=== PATIENT | male | born 1990 | race African-American/Black ===

== ENCOUNTER 2021-02-23 14:01 | Emergency (ER) | payer BC ==
[2021-02-23] MEDS ORDERED: Ondansetron 4 MG Tab.DIS ONE (14:05)
--- NOTE | 2021-02-23 14:29 | EDM.PDOC ---
ED HPI GENERAL MEDICAL PROBLEM - General Chief Complaint: General Stated Complaint: N/V Time Seen by Provider: 02/23/21 14:10 Source of Information: Reports: Patient History Limitations: Reports: No Limitations - History of Present Illness INITIAL COMMENTS - FREE TEXT/NARRATIVE: Guillermo is a 30 year old male who presents to the ER per EMS with complaints of body aches, headache and nausea since having his [employer] covid vaccine on . States symptoms kicked in Wednesday. Has not been able to eat or drink since then due to nausea, vomiting. No diarrhea. States has headache and significant body aches. No cough, sinus congestion, shortness of breath, chest discomfort. No abdominal pain. Denies urinary complaints. has been taking intermittent tylenol with minimal improvement. Onset: Gradual Duration: Day(s):, Waxing/Waning Location: Reports: Head, Generalized Quality: Reports: Ache Severity: Moderate Improves with: Reports: None Associated Symptoms: Reports: Headaches, Malaise, Nausea/Vomiting. 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 [No Known Home Meds] 02/23/21 [History] Past Medical History - Past Health History Medical/Surgical History: Denies Medical/Surgical History Social & Family History - Family History Family Medical History: No Pertinent Family History - Tobacco Use Tobacco Use Status *Q: Never Tobacco User Second Hand Smoke Exposure: No - Caffeine Use Caffeine Use: Reports: None - Recreational Drug Use Recreational Drug Use: No ED ROS GENERAL - Review of Systems Review Of Systems: See Below Constitutional: Reports: Chills, Malaise, Weakness, Fatigue. Denies: Fever HEENT: Denies: Ear Pain, Rhinitis, Sinus Problem, Throat Pain, Vertigo Respiratory: Denies: Shortness of Breath, Cough Cardiovascular: Reports: Lightheadedness. Denies: Chest Pain, Edema Endocrine: Reports: Fatigue GI/Abdominal: Reports: Nausea, Vomiting. Denies: Abdominal Pain, Constipation, Diarrhea : Reports: No Symptoms Musculoskeletal: Reports: Joint Pain, Muscle Pain Skin: Reports: No Symptoms Neurological: Reports: Headache Psychiatric: Reports: No Symptoms ED EXAM, GENERAL - Physical Exam Exam: See Below Exam Limited By: No Limitations General Appearance: Alert, WD/WN, No Apparent Distress Ears: Normal External Exam, Normal TMs Nose: Normal Inspection, Normal Mucosa, No Blood Throat/Mouth: Normal Inspection, Normal Oropharynx Head: Normocephalic Neck: Normal Inspection, Supple, Non-Tender Respiratory/Chest: No Respiratory Distress, Lungs Clear, Normal Breath Sounds Cardiovascular: Regular Rate, Rhythm GI/Abdominal: Normal Bowel Sounds, Soft, Non-Tender Extremities: Normal Inspection, No Pedal Edema Neurological: Alert, Oriented Skin Exam: Warm, Dry Course - Vital Signs Last Recorded V/S: Last Vital Signs Temp 97.2 F 02/23/21 14:06 Pulse 106 H 02/23/21 14:06 Resp 16 02/23/21 14:06 BP 123/85 02/23/21 14:06 Pulse Ox 96 02/23/21 14:06 - Orders/Labs/Meds Orders: Active Orders 24 hr Category Date Time Status Sodium Chloride 0.9% [Normal Saline] 1,000 ml Med 02/23/21 14:22 Ordered IV .BOLUS Medication Orders Sodium Chloride (Normal Saline) 1,000 mls @ 999 mls/hr IV .BOLUS ONE Stop: 02/23/21 15:22 Last Admin: 02/23/21 14:31 Dose: 999 mls/hr Documented by: Meds: Medications Generic Name Dose Route Start Last Admin Trade Name Freq PRN Reason Stop Dose Admin Sodium Chloride 1,000 mls @ 999 mls/hr 02/23/21 14:22 02/23/21 14:31 Normal Saline IV 02/23/21 15:22 999 mls/hr .BOLUS ONE Administration Discontinued Medications Generic Name Dose Route Start Last Admin Trade Name Freq PRN Reason Stop Dose Admin Ketorolac Tromethamine 30 mg 02/23/21 14:22 02/23/21 14:30 Ketorolac 30 Mg/Ml Sdv IVPUSH 02/23/21 14:23 30 mg ONETIME ONE Administration Ondansetron HCl 4 mg 02/23/21 14:23 02/23/21 14:30 Ondansetron 4 Mg/2 Ml Sdv IVPUSH 02/23/21 14:24 4 mg ONETIME ONE Administration Ondansetron HCl 2 packet 02/23/21 14:23 02/23/21 14:30 Take Home: Ondansetron 4 Mg Tab.Dis, 2 Tab Pack PO 02/23/21 14:24 2 packet ONETIME ONE Administration - Re-Assessments/Exams Free Text/Narrative Re-Assessment/Exam: 02/23/21 14:56 is feeling better after the zofran and toradol. IV fluids infusing due to nausea/vomiting. Departure - Departure Time of Disposition: 14:57 Disposition: Home, Self-Care 01 Condition: Good Clinical Impression: Vaccine reaction Qualifiers: Encounter type: initial encounter Qualified Code(s): T50.Z95A - Adverse effect of other vaccines and biological substances, initial encounter - Discharge Information *PRESCRIPTION DRUG MONITORING PROGRAM REVIEWED*: No *COPY OF PRESCRIPTION DRUG MONITORING REPORT IN PATIENT ANIKA: No Forms: ED Department Discharge Additional Instructions: 1. Push fluids 2. Paloma foods 3. Zofran 4 mg under the tongue every 6 hours as needed for nausea/vomiting 4. Alternate tylenol with ibuprofen every 3 hours as needed for fever/discomfort 5. Follow up for any persisting concerns. Sepsis Event Note (ED) - Evaluation Sepsis Screening Result: No Definite Risk - Focused Exam Vital Signs: Vital Signs Temp Pulse Resp BP Pulse Ox 02/23/21 14:06 97.2 F 106 H 16 123/85 96 - My Orders Last 24 Hours: My Active Orders 02/23/21 14:22 Sodium Chloride 0.9% [Normal Saline] 1,000 ml IV .BOLUS - Assessment/Plan Last 24 Hours: My Active Orders 02/23/21 14:22 Sodium Chloride 0.9% [Normal Saline] 1,000 ml IV .BOLUS
[2021-02-23] MEDS: Ketorolac 30 MG/ML SDV IVPUSH ONE (14:30)
[2021-02-23] MEDS: Ondansetron 4 MG/2 ML SDV IVPUSH ONE (14:30)
[2021-02-23] MEDS: Take Home: Ondansetron 4 MG Tab.DIS, 2 Tab Pack PO ONE (14:30)
[2021-02-23] MEDS: Sodium Chloride 0.9% 1,000 ML IV ONE (14:31)
== END 2021-02-23 15:41 | disposition home or self-care (01) ==
LOC: CC.ED 14:01
DX: M79.10 Myalgia, unspecified site (principal); T50.B95A Adverse effect of other viral vaccines, initial encounter
CPT/HCPCS: 96374; 96375; 99284; A9270; J1885; J2405; J7030

== ENCOUNTER 2021-05-25 02:56 | Emergency (ER) | payer BC ==
--- NOTE | 2021-05-25 03:56 | EDM.PDOC ---
ED HPI GENERAL MEDICAL PROBLEM - General Chief Complaint: General Stated Complaint: KNEE PAIN Time Seen by Provider: 05/25/21 03:05 Source of Information: Reports: Patient History Limitations: Reports: No Limitations - History of Present Illness INITIAL COMMENTS - FREE TEXT/NARRATIVE: Patient reports chronic right knee pain for 1 year. He reports pops and hurts off and on. He reports he has been working a lot lately and thins thats making it hurt more often. Wanted to get it checked out early this morning. Denies redness, heat, injury. Duration: Week(s): (52) Location: Reports: Lower Extremity, Right Quality: Reports: Ache Severity: Mild Improves with: Reports: Rest Worsens with: Reports: Movement Associated Symptoms: Reports: No Other Symptoms Right Knee Pain Score (Numeric/FACES): 8 - Related Data Allergies Allergy/AdvReac Type Severity Reaction Status Date / Time No Known Allergies Allergy Verified 05/25/21 03:03 Home Meds: Home Meds Insulin Aspart [NovoLOG] 10 - 12 unit SQ WITHMEALSANDBED 05/25/21 [History] Insulin Glarg,Human.Rec.Analog [Lantus] 30 - 36 unit SUBCUT DAILY 05/25/21 [History] Past Medical History - Past Health History Medical/Surgical History: Denies Medical/Surgical History Endocrine/Metabolic History: Reports: Diabetes, Type I Social & Family History - Family History Family Medical History: No Pertinent Family History - Tobacco Use Tobacco Use Status *Q: Current Every Day Tobacco User Years of Tobacco use: 10 Packs/Tins Daily: 1 - Caffeine Use Caffeine Use: Reports: None - Recreational Drug Use Recreational Drug Use: No ED ROS GENERAL - Review of Systems Review Of Systems: See Below Constitutional: Reports: No Symptoms Respiratory: Reports: No Symptoms Cardiovascular: Reports: No Symptoms GI/Abdominal: Reports: No Symptoms Musculoskeletal: Reports: Joint Pain (right knee pain). Denies: Joint Swelling Skin: Reports: No Symptoms Neurological: Reports: No Symptoms ED EXAM, GENERAL - Physical Exam Exam: See Below Exam Limited By: No Limitations General Appearance: Alert, WD/WN, No Apparent Distress Respiratory/Chest: No Respiratory Distress, Lungs Clear, Normal Breath Sounds, No Accessory Muscle Use Cardiovascular: Normal Peripheral Pulses, Regular Rate, Rhythm, No Edema Peripheral Pulses: 2+: Popliteal (R), Posterior Tibial (L), Posterior Tibial (R) Extremities: Normal Inspection, Normal Range of Motion, No Pedal Edema, Normal Capillary Refill, Other (mild tenderness anterior lateral/medial/ and meniscus location. ROM intact. Neurovascular intact. Sensory/motor function intact. pulses +2, cap refill < 2 sec. ) Neurological: Alert, Oriented, Normal Cognition Psychiatric: Normal Affect, Normal Mood Skin Exam: Warm, Dry, Intact, Normal Color, No Rash Course - Vital Signs Last Recorded V/S: Last Vital Signs Temp 97.8 F 05/25/21 03:01 Pulse 106 H 05/25/21 03:01 Resp 18 05/25/21 03:01 BP 127/85 05/25/21 03:01 Pulse Ox 99 05/25/21 03:01 - Orders/Labs/Meds Orders: Active Orders 24 hr Category Date Time Status Knee 3V Rt [CR] Stat Exams 05/25/21 03:07 Taken Departure - Departure Time of Disposition: 03:54 Disposition: Home, Self-Care 01 Condition: Good Clinical Impression: Knee pain, right Qualifiers: Chronicity: chronic Qualified Code(s): M25.561 - Pain in right knee - Discharge Information *PRESCRIPTION DRUG MONITORING PROGRAM REVIEWED*: Not Applicable *COPY OF PRESCRIPTION DRUG MONITORING REPORT IN PATIENT ANIKA: Not Applicable Instructions: Chronic Knee Pain, Adult Referrals: PCP,None [Primary Care Provider] - Forms: ED Department Discharge Additional Instructions: Followup with your primary care provider Return to the ER for worsening or any emergent concerns Rest knee Ice knee Knee immobilizer as needed IbuProfen for pain over the counter Sepsis Event Note (ED) - Evaluation Sepsis Screening Result: No Definite Risk - Focused Exam Vital Signs: Vital Signs Temp Pulse Resp BP Pulse Ox 05/25/21 03:01 97.8 F 106 H 18 127/85 99 - My Orders Last 24 Hours: My Active Orders 05/25/21 03:07 Knee 3V Rt [CR] Stat - Assessment/Plan Last 24 Hours: My Active Orders 05/25/21 03:07 Knee 3V Rt [CR] Stat Plan: PLEASE SEE RN NOTE FOR PFSH
== END 2021-05-25 04:07 | disposition home or self-care (01) ==
LOC: CC.ED 02:56
DX: M25.561 Pain in right knee (principal); E10.9 Type 1 diabetes mellitus without complications; Z72.0 Tobacco use
CPT/HCPCS: 73562-RT; 99283-25

== ENCOUNTER 2021-06-05 21:35 | Emergency (ER) | payer BC ==
--- NOTE | 2021-06-05 21:51 | EDM.PDOC ---
ED HPI GENERAL MEDICAL PROBLEM - General Chief Complaint: General Stated Complaint: HENRY Time Seen by Provider: 06/05/21 21:35 Source of Information: Reports: Patient History Limitations: Reports: No Limitations - History of Present Illness INITIAL COMMENTS - FREE TEXT/NARRATIVE: States that earlier to day he developed a migraine that he never gets. He was sensitive to the light, tears in his eyes, and his Blood sugar at the time on his monitor was 169 which he thought was high for him. He admits that he did not get much sleep recently as he works in [employer] at [employer] in [employer] and then works at [employer]. When he had his migraine he went home and slept and then over slept as he didn't wake up in time for his shift that was supposed to start at 4 pm and reported at 8pm. His headache was completely gone and his Blood sugar was 144 at that time. He has eaten since then. When he reported to work they told him he needed to be checked out and came to the ER. He states that on arrival here he feels back to his normal self. - Related Data Allergies Allergy/AdvReac Type Severity Reaction Status Date / Time No Known Allergies Allergy Verified 06/05/21 21:36 Home Meds: Home Meds Insulin Aspart [NovoLOG] 10 - 12 unit SQ WITHMEALSANDBED 05/25/21 [History] Insulin Glarg,Human.Rec.Analog [Lantus] 30 - 36 unit SUBCUT DAILY 05/25/21 [History] Past Medical History - Past Health History Medical/Surgical History: Denies Medical/Surgical History Endocrine/Metabolic History: Reports: Diabetes, Type I Social & Family History - Family History Family Medical History: No Pertinent Family History - Caffeine Use Caffeine Use: Reports: None ED ROS GENERAL - Review of Systems Review Of Systems: See Below Constitutional: Reports: No Symptoms HEENT: Reports: No Symptoms Respiratory: Reports: No Symptoms Cardiovascular: Reports: No Symptoms GI/Abdominal: Reports: No Symptoms : Reports: No Symptoms Psychiatric: Reports: No Symptoms ED EXAM, GENERAL - Physical Exam Exam: See Below Exam Limited By: No Limitations General Appearance: Alert, WD/WN, No Apparent Distress Ears: Normal External Exam, Normal Canal, Normal TMs Respiratory/Chest: No Respiratory Distress, Lungs Clear, Normal Breath Sounds Cardiovascular: Normal Peripheral Pulses, Regular Rate, Rhythm, No Edema GI/Abdominal: Normal Bowel Sounds, Soft, Non-Tender Neurological: Alert, Oriented Psychiatric: Normal Affect Skin Exam: Warm, Dry, Intact Departure - Departure Time of Disposition: 21:48 Disposition: Home, Self-Care 01 Condition: Good Clinical Impression: Migraine Qualifiers: Migraine type: without aura Status migrainosus presence: without status migrainosus Intractability: not intractable Qualified Code(s): G43.009 - Migraine without aura, not intractable, without status migrainosus - Discharge Information *PRESCRIPTION DRUG MONITORING PROGRAM REVIEWED*: Not Applicable *COPY OF PRESCRIPTION DRUG MONITORING REPORT IN PATIENT ANIKA: Not Applicable Instructions: Migraine Headache, [id number] Forms: ED Department Discharge Additional Instructions: continue to monitor blood sugars as currently doing Eat regularly push fluids get enough rest continue normal activity. - Problem List & Annotations (1) Migraine SNOMED Code(s): 37235176 Code(s): G43.909 - MIGRAINE, UNSP, NOT INTRACTABLE, WITHOUT STATUS MIGRAINOSUS Status: Acute Priority: High Qualifiers: Migraine type: without aura Status migrainosus presence: without status migrainosus Intractability: not intractable Qualified Code(s): G43.009 - Migraine without aura, not intractable, without status migrainosus - Problem List Review Problem List Initiated/Reviewed/Updated: Yes
== END 2021-06-05 21:55 | disposition home or self-care (01) ==
LOC: CC.ED 21:35
DX: G43.009 Migraine without aura, not intractable, without status migrainosus (principal); E10.9 Type 1 diabetes mellitus without complications
CPT/HCPCS: 99283

== ENCOUNTER 2022-02-01 04:38 | Emergency (ER) | payer BC, OTHER | END 2022-02-01 05:35 | disposition home or self-care (01) | LOC: CC.ED 04:38 | DX: E86.0 Dehydration (principal); E10.9 Type 1 diabetes mellitus without complications; F17.210 Nicotine dependence, cigarettes, uncomplicated | CPT/HCPCS: 81001; 99283; 99284 ==

== ENCOUNTER 2022-07-06 04:25 | Emergency (ER) | payer BC | END 2022-07-06 05:25 | disposition home or self-care (01) | LOC: CC.ED 04:25 | DX: B34.9 Viral infection, unspecified (principal); E10.9 Type 1 diabetes mellitus without complications; F17.210 Nicotine dependence, cigarettes, uncomplicated; Z20.822 Contact with and (suspected) exposure to COVID-19 | CPT/HCPCS: 87804; 99283; U0002 ==